=== PATIENT | female | born 1950 | race Caucasian/White ===

== ENCOUNTER 2017-12-02 19:28 | Emergency (ER) | payer BC ==
[2017-12-02 20:04] LABS: Base Excess-Venous -19.9 mmol/L (0 (+/- 2.5)); Bicarbonate (HCO3v) 14.9 mmol/L (1.0-85.0); CO2 Tension (PvCO2) 82.4 mmHg (41.0-51.0); Calcium, Ionized 1.27 mmol/L (1.12-1.32); Hemoglobin - Calc 14.2 g/dL (12.0-18.0); Lactate 9.31 mmol/L (0.50-2.20); O2 Tension (PvO2) 27.2 mmHg (35.0-45.0); Potassium 4.4 mmol/L (3.4-4.7); T. Carbon Dioxide 17.4 mmol/L (1.0-85.0); pH (Venous) 6.866 (7.35-7.45); vO2 Saturation-calc 20.6 % (94-98)
[2017-12-02] MEDS ORDERED: Dextrose 50% Abboject 50 ML SYRINGE ONE (21:00)
[2017-12-02] MEDS ORDERED: EPINEPHrine 1 MG/10 ML Abboject SYRINGE ONE ×2 (21:00)
[2017-12-02] MEDS ORDERED: Calcium Chloride 1 GM/10 ML Abboject SYRINGE ONE (21:00)
[2017-12-02] MEDS ORDERED: Sodium Bicarb 50 MEQ/50 ML Abboject 8.4% SYRINGE ONE (21:00)
[2017-12-02] MEDS ORDERED: Magnesium 5 GM/10 ML Abboject SYRINGE ONE (21:00)
== END 2017-12-02 20:02 | disposition expired ==
LOC: ERS 19:28
DX: I46.9 Cardiac arrest, cause unspecified (principal); J96.91 Respiratory failure, unspecified with hypoxia; E87.2 Acidosis
CPT/HCPCS: 31500; 82330; 82435; 82565; 82803; 82947; 83605; 84132; 84295; 85014; 94760; 96374; 96375; J0171; J0282; J3475